=== PATIENT | male | born 1995 | race Caucasian/White ===

== ENCOUNTER 2017-07-08 21:44 | Emergency (ER) | payer OTHER, MEDICAID, SELFPAY ==
[2017-07-08 21:47] VITALS: BP 154/99; PULSE 103; RESP 17; TEMP 36.7; O2SAT 100; BMI 34.5
--- NOTE | 2017-07-09 00:21 | DI.RAD.S_ITS ---
PROCEDURE: XR CHEST 2V INDICATIONS: coughing / choking - aspiration? TECHNIQUE: 2 views of the chest were acquired. COMPARISON: None. FINDINGS: Surgical changes and devices: None. Lungs and pleura: No pleural effusions or pneumothorax. Lungs are clear. Mediastinum: Mediastinal contours are normal. Heart size is normal. Bones and chest wall: No suspicious bony abnormalities. Soft tissues appear unremarkable. IMPRESSION: No acute process. Dictated by: Liudmila Mckeon M.D. on 07/09/2017 at 8:11 Approved by: Liudmila Mckeon M.D. on 07/09/2017 at 8:12
[2017-07-09] MEDS: DEXAMETHASONE 4 MG TABLET 12 MG PO (00:45)
--- NOTE | 2017-07-09 00:50 | ED_ITS ---
HPI - URI/Sore Throat General Chief Complaint: Upper Respiratory Symptoms Stated Complaint: HARD TIME BREATHING History of Present Illness HPI Narrative: HPI 21-year-old male with history of prior TBI and asthma (an albuterol inhaler, no AeroChamber) presents for evaluation of 3 days of cough, rhinorrhea, and a mild sore throat. Prior to presentation the patient had a brief coughing type choking type spell. Patient believes he may have had increased postnasal drip at the time. Patient denies a history of DVT or PE, patient denies chest pain. Patient denies fevers. Denies rash, neck stiffness, headache, changes in vision or hearing, or ear pain. M/S/F/SocHx notable for: please see HPI; remainder reviewed with patient and in chart. ROS: Negative constitutional, eye, cardiovascular, pulmonary, GI, , MSK, skin , neurologic, psychiatric, endocrine unless noted in the HPI. Exam Gen: Pleasant, non-toxic appearing, resting comfortably. Mildly nasal phonation. HEENT: Normocephalic, atraumatic. * Ears - TMs clear bilaterally, bilateral external auditory canals without erythema, inflammation, or swelling, bilateral mastoids nontender without overlying erythema, swelling, or warmth. * Eyes - Bilateral eyes without injection, swelling, or discharge, no proptosis or periorbital erythema, swelling, warmth, or tenderness. * Mouth - Anterior oropharynx with MMM, no lesions appreciated, floor of the mouth is soft and without swelling. Posterior oropharynx with mild erythema but without swelling, exudate, lesions, uvula midline. * Nose - Nares with scant crusting and discharge. * Neck - Neck supple without posterior anterior cervical chain lymphadenopathy bilaterally. Resp: Clear to auscultation bilaterally, normal work of breathing without accessory muscle usage.Infrequent mildly productive cough observed. Card: Regular rate and rhythm with no murmurs, rubs or gallops. Extremities warm and well perfused. GI: nontender, nondistended. : Deferred MSK: No visible deformities, strength and tone without visually appreciable deficit. Neuro: AO x 3, no facial asymmetry, vision and hearing WNL. Heme/Lymph: Deferred Skin: Normal color with no visible lesions (other than noted above). Psych: Mood and affect appropriate. CXR: no acute cardiopulmonary disease process. MDM Previous chart, nursing note, and vitals reviewed. A: 21-year-old male with history of prior TBI and asthma (an albuterol inhaler, no AeroChamber) presents for evaluation of 3 days of cough, rhinorrhea, and a mild sore throat DDx: viral rhinosinusitis, bacterial rhinosinusitis, pharyngitis (HSV vs viral NOS vs GAS vs bacterial NOS)], EBV, peritonsillar cellulitis, MANAGER OF RECRUITING, RPA, Ej' s angina, epiglottitis. Evaluation: Overall presentation most consistent with a viral rhinosinutisis, given the duration of symptoms and overall well compensated appearance, antibiotic treatment is not currently indicated, suspect the patient's coughing episode was secondary to postnasal drip. Chest x-ray clear, no pneumothorax, and the patient's history is reassuringly without evidence of hypoxemia or cyanosis. rapid strep not indicated, oral mucosa without lesions consistent with HSV or candidiasis, low suspicion for peritonsillar cellulitis or abscess given the absence of asymmetric swelling or uvular deviation, RPA is unlikely as the patient can comfortably flex and extend their neck and swallow without difficulty. As phonation is intact and breathing is unlabored doubt epiglottitis. The floor of the mouth is without evidence of Ej's angina. Lemierre's disease was considered but as the patient does not have signs of MANAGER [employer]ING or sepsis, further evaluation was not indicated. ED Course: No clinically significant changes. Patient given 12 mg Decadron. Disposition: Discharge with return to care as needed. Return to care indications provided. Prescription for albuterol spacer provided. Impression: Rhinosinusitis. (please reference below for remainder of encounter information) Related Data Home Medications Medication Instructions Recorded Confirmed [Krill oil] #0 02/02/16 Previous Rx's Medication Instructions Recorded Disabled Parking Permit packet #1 02/02/16 hydrocodone-acetaminophen 1 tab PO Q6HP PRN #16 tab 08/11/16 albuterol sulfate [Ventolin HFA] 2 puff INH Q4HP PRN #1 ea 08/13/16 gabapentin [Neurontin] 600 mg PO TID #270 tab 06/08/17 Allergies Allergy/AdvReac Type Severity Reaction Status Date / Time amoxicillin [AMOXICILLIN] Allergy Unknown Unverified 06/01/17 12:28 nut - unspecified [NUT] Allergy Unknown Unverified 06/01/17 12:28 PFSH Surgical History Status post craniotomy Family History Grandmother Age: 69 Diabetes mellitus Social History Smoking Status: Current some day smoker Exam Initial Vital Signs Initial Vital Signs: Vital Signs Temperature 98.1 F 07/08/17 21:47 Pulse Rate 103 H 07/08/17 21:47 Respiratory Rate 17 07/08/17 21:47 Blood Pressure 154/99 H 07/08/17 21:47 Pulse Oximetry 100 07/08/17 21:47 Course Orders Ordered: ED Orders 07/09/17 00:21 XR chest 2V Stat Vital Signs - 8 hr 07/08/17 21:47 Temperature 98.1 F Pulse Rate 103 H Respiratory Rate 17 Blood Pressure 154/99 H Pulse Oximetry 100 Discharge Plan Departure Prescriptions: No Action [Krill oil] Qty: 0 RF: 0 Disabled Parking Permit Qty: 1 RF: 0 hydrocodone-acetaminophen 5 MG/325 MG tablet 1 tab PO Q6HP PRNQty: 16 RF: 0 albuterol sulfate [Ventolin HFA] 90 MCG/PUFF HFA aerosol inhaler 2 puff INH Q4HP PRNQty: 1 RF: 5 gabapentin [Neurontin] 600 MG tablet 600 mg PO TID Qty: 270 RF: 3
[2017-07-09 01:19] VITALS: BP 142/102; PULSE 96; RESP 16; TEMP 36.2; O2SAT 100
== END 2017-07-09 01:22 | disposition home or self-care (01) ==
PROVIDERS: Emergency Provider Emergency Medicine; PCP Family Medicine
DX: J32.9 Chronic sinusitis, unspecified (principal)
CPT/HCPCS: 71046; 99282; 99283

== ENCOUNTER → 2017-08-27 11:07 | Outpatient (CLI) | payer OTHER, MEDICAID, SELFPAY ==
--- NOTE | 2017-08-27 11:09 | DI.RAD.S_ITS ---
PROCEDURE: XR THORACIC SPINE 3V INDICATIONS: thoracic back pain, no trauma TECHNIQUE: 3 views of the thoracic spine were acquired. COMPARISON: [facility], CR, XR CHEST 2V, 07/09/2017, 0:06. FINDINGS: Bones: No acute fractures or subluxation. Slight anterior wedging of a few vertebral bodies in the lower thoracic spine appear similar to the prior study. There is an associated mild kyphosis. There is a mild rightward curvature of the lower thoracic spine. No suspicious bony lesions. 12 pairs of ribs are noted, and appear intact where visualized. Soft tissues: No paravertebral stripe thickening. IMPRESSION: 1. No acute fracture or subluxation. 2. Slight anterior wedging of a few vertebral bodies in the lower thoracic spine redemonstrated with associated mild kyphosis. Dictated by: Gume Armenta M.D. on 08/27/2017 at 12:13 Approved by: Gume Armenta M.D. on 08/27/2017 at 12:15
== END ==
PROVIDERS: PCP Family Medicine; Visit Provider Family Medicine
DX: M54.6 Pain in thoracic spine (principal)
CPT/HCPCS: 72072

== ENCOUNTER → 2017-09-13 07:21 | Outpatient (CLI) | payer OTHER, MEDICAID, SELFPAY ==
--- NOTE | 2017-09-13 07:22 | DI.MRI.S_ITS ---
PROCEDURE: MR THORACIC SPINE WO CON INDICATIONS: nerve root injurt of thoracic spine TECHNIQUE: Noncontrast sagittal T1 spine echo and T2 fast spin echo, sagittal STIR, axial T1 and T2 fast spin echo through the thoracic spine. COMPARISON: [facility], CR, XR THORACIC SPINE 3V, 08/27/2017, 11:04. FINDINGS: Image quality: Excellent. Alignment and Curvature: There is normal bony alignment. Bone Marrow: Marrow is of normal overall signal. No acute vertebral body compression fractures. There is mild loss of vertebral height at T8, T9, T10, and T11 without associated marrow edema, either congenital or sequelae of old injury. This results in focal kyphosis in the lower thoracic spine. Spinal Cord: Visualized spinal cord is normal in size and signal. Paraspinous Soft Tissues: No paravertebral masses. Miscellaneous: There is posterior left paramedian disc protrusion at C7-C8 with a protruding disc measuring 5 mm anterior posterior, 7 mm transverse and 9 mm cephalocaudal. There is severe narrowing of the left lateral recess and impingement of nerve root. There is mass effect and flattening of the ventral cord at this level. The central canal moderately narrowed. No subarticular foramina. Mild diffuse posterior disc bulge is also seen at T10-T11 causing mild central canal narrowing. IMPRESSION: 1. There is posterior left paramedian disc protrusion with a 5 x 7 x 9 mm protruding disc occupying the left lateral recess impinging the nerve root. The central canal is moderately narrowed. There is mass effect to the spinal cord with ventral flattening of the cord. 2. Loss of vertebral body height at T8, T9, T10 and T11 without associated marrow edema, suggesting chronic etiology. This may be congenital or sequelae of old injury. There is mild focal kyphosis in the lower thoracic spine. 3. Mild posterior disc bulge at T10-T11 causing mild central canal stenosis. Dictated by: Shayne Adams M.D. on 09/13/2017 at 8:23 Transcribed by: KRISHAN on 09/13/2017 at 8:36 Approved by: Shayne Adams M.D. on 09/13/2017 at 17:49
== END ==
PROVIDERS: Family Provider Family Medicine; PCP Family Medicine; Visit Provider Family Medicine
DX: S24.2XXA Injury of nerve root of thoracic spine, initial encounter (principal); M40.204 Unspecified kyphosis, thoracic region; M48.04 Spinal stenosis, thoracic region
CPT/HCPCS: 72146

== ENCOUNTER → 2019-09-10 11:06 | Outpatient (CLI) | payer OTHER, MEDICAID, SELFPAY ==
--- NOTE | 2019-09-10 | DI.MRI.S_ITS ---
PROCEDURE: MR THORACIC SPINE WO CON INDICATIONS: Other kyphosis, thoracic region TECHNIQUE: Noncontrast sagittal T1 spine echo and T2 fast spin echo, sagittal STIR, axial T1 and T2 fast spin echo through the thoracic spine. COMPARISON: [facility], CR, XR THORACIC SPINE 3V, 08/27/2017, 11:04. [facility], MR, MR THORACIC SPINE WO CON, 09/13/2017, 7:50. FINDINGS: Image quality: Excellent. Alignment and Curvature: There is normal bony alignment. Bone Marrow: Marrow is of normal overall signal. No acute vertebral body compression fractures. Spinal Cord: Visualized spinal cord is normal in size and signal. Note is made of previously present degenerative disc disease most prominent at T7-T8, within asymmetric posterolateral contiguous disc herniation at the left margin of the thecal sac, previously present, impinging on the anterolateral left thecal sac and producing focal eccentric mild to moderate spinal stenosis at that level. No new disc bulge or herniation has developed. Mild degenerative disc disease and low thoracic spine kyphosis is again noted in this area. Paraspinous Soft Tissues: No paravertebral masses. Miscellaneous: On axial images, central canal and foramina appear widely patent at all scanned levels. IMPRESSION: No change in a chronic contiguous left posterolateral disc herniation involving the T7-T8 level of the thoracic spine with reference to the prior MRI from 09/13/17. Focal anterior impingement on the thecal sac in that area is present as a result, without worsening. This may also impinge upon the left-sided T7 nerve root within the spinal canal in that area. Chronic mild kyphosis centered at T8, previously present by plain film imaging also in August of 2017. Dictated by: Nabil Hartmann M.D. on 09/10/2019 at 12:25 Approved by: Nabil Hartmann M.D. on 09/10/2019 at 12:32
== END ==
PROVIDERS: PCP Student in an Organized Health Care Education/Training Program; Referring Provider Neurological Surgery; Visit Provider Neurological Surgery
DX: M40.294 Other kyphosis, thoracic region (principal); M51.24 Other intervertebral disc displacement, thoracic region
CPT/HCPCS: 72146

== ENCOUNTER 2019-09-20 14:30 | Outpatient (RCR) | payer OTHER, MEDICAID, SELFPAY ==
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
--- NOTE | 2019-09-13 16:45 | PT.OPPOC ---
Physical, Occupational & Speech Therapy At [facility] Current Diagnoses Other secondary scoliosis, thoracic region (09/13/19) Unspecified thoracic, thoracolumbar and lumbosacral intervertebral disc disorder (09/13/19) Congenital kyphosis, thoracic region (09/13/19) Abnormal posture (09/13/19) Weakness (09/13/19) Visit Care Team Role Provider Type Niko Fernandes MD Primary Care Provider Physician Specialty: Internal Medicine Address: [address] [place] [address], [address], [address] Email: [email or web address] Nic Calero Attending Provider Non-Staff Referring Provider Specialty: Neuromuscular Medicine Address: [address] [place] [address], [employer] Email: Plan Of Care PT-OP-T Assessment and Plan Start: 09/13/19 17:51 Freq: Status: Active Protocol: Document 09/13/19 16:00 DCW (Rec: 09/14/19 11:50 DCW [id number]) Physical Therapy Assessment Rehab Potential Rehabilitation Potential Fair Evaluation Complexity Number of Personal Factors/Comorbidities 3 or More Number of Body Systems Impaired 4 or More Clinical Presentation at Evaluation Unstable Impairments Impairments Activity Tolerance, Coordination,Functional Activities,Functional Mobility ,Gait,Pain,Posture,ROM, Sensation,Soft Tissue Mobility ,Strength Goals Three Impairment Poor posture, inferior angle 15 cm from spine bilaterally Capacitor Assembler Goal (LTG) Pt to be able to display shoulder's back posture with less than 9 cm between spine and inferior angle of his scapula bilaterally. LTG Duration 11/14/19 Two Impairment TrA weakness 4-/5 Capacitor Assembler Goal (LTG) Pt to present with TrA MMT of 4+/5 or better to improve stability of core and low back , to assist in recovery of upcoming thoracic fusion and discectomy LTG Duration 11/14/19 One Impairment Pt does not have an appropriate home exercise program Short Term Goal (STG) Pt to be independent and compliant with an appropriate HEP STG Duration 10/14/19 Assessment Summary Assessment Pt presents for a high complexity evaluation with the main goal of improving core and back strength to improve recovery for upcoming thoracic surgery. 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 Pt gets pain when remaining in a seated or standing position for longer than ~10 minutes, which will likely limit some of the activities he is able to participate in during therapy. Skilled therapy should mainly focus on strengthening core and back musculature, which may hopefully improve tolerance to activity and improve positioning. Pt's poor posture due to Scheuermann's kyphosis may also limit participation in therapy, however he may benefit from some general shoulder/scapular strengthening in order to attempt to improve scapular mobility. Physical Therapy Plan Frequency and Duration Frequency of Treatment 2x/Week Duration of Treatment 8 weeks Plan of Care Start Date 09/13/19 Plan of Care End Date 11/08/19 Therapeutic Interventions Therapeutic Interventions Gait Training,Home Exercise Program,Manual Therapy, Neuromuscular Re-education, Patient/Caregiver Education, Self-Care/Home Management,Soft Tissue Mobilization, Therapeutic Activities, Therapeutic Exercises Modalities Cold Pack/Ice Massage,Electric Stimulation,Hot Packs, Ultrasound Next Visit Focus/Plan Next Note Type Treatment Note Next Visit Plan Begin core strengthening, posture training Plan of Care Dates Plan of Care Start Date 09/13/19 Plan of Care End Date 11/08/19 Electronically Signed by: Smooth De Paz, PT 09/14/19 0323 Please Sign and Return: I have reviewed this Plan of Care and certify that the skilled therapy services above are required to meet the patient?s needs. Physician Signature Date Printed Name and Credentials Clinical Instructor Signature Printed Name and Credentials
--- NOTE | 2019-09-18 16:38 | PT.OTN ---
Current Diagnoses Other secondary scoliosis, thoracic region (09/18/19) Unspecified thoracic, thoracolumbar and lumbosacral intervertebral disc disorder (09/18/19) Congenital kyphosis, thoracic region (09/18/19) Abnormal posture (09/18/19) Weakness (09/18/19) Physical Therapy Treatment Note PT-OP-A Visit Information Start: 09/13/19 17:51 Freq: Status: Active Protocol: Document 09/18/19 15:48 DCW (Rec: 09/18/19 16:38 DCW [id number]) Out-Patient Physical Therapy Visit Information Visit Information Visit Type Treatment Note Visit Start Time 15:48 Visit Stop Time 16:30 Total Visit Minutes 42 Visit Number 2 Number of [employer]ON Visits 0 Evaluation Information Evaluation Date 09/13/19 PT-OP-B Current Condition Start: 09/13/19 17:51 Freq: Status: Active Protocol: Document 09/13/19 16:00 DCW (Rec: 09/14/19 08:52 DCW [id number]) Current Condition History of Current Condition Onset Date 09/08/13 Current Complaints Back pain, left-sided weakness , poor posture History of Current Condition Pt is a 23 year old male with an incredibly complex history, presenting to skilled PT in order to increase his core and back strength. Pt reports that in August of 2013, he had a nasty slip and fall, after which he was air lifted to [facility], underwent a Craniotomy to relieve swelling around the brain, has had 50+ titanium screws and plates in his skull, and was in a coma for six weeks. The end results of these injuries involve left-sided nerve damage, which causes weakness and absence of sensory input from his left upper and lower extremities. Pt uses a SPC for stability secondary to the leg weakness. Pt attempted to attend college after his accident, however due to the brain injury, had a lot of difficulty with studying and learning new material, and he admits he still gets words mixed up and has trouble with word finding. 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 Additionally, due to his fall, pt has a disc herniation at T7-8, which pretty much causes pain 13/09. Pt is planning on scheduling a surgery to address the disc herniation and fuse his thoracic spine to limit kyphosis, however his surgeon suggested pre-op therapy to improve core and back strength in order to improve recovery time following surgery. 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 Pt notes he is able to use specific nerve pain feedback to figure out what his hand is doing. Prior Treatments and Tests Thoracic MRI: MPRESSION: No change in a chronic contiguous left posterolateral disc herniation involving the T7-T8 level of the thoracic spine with reference to the prior MRI from 09/13/17. Focal anterior impingement on the thecal sac in that area is present as a result, without worsening. This may also impinge upon the left-sided T7 nerve root within the spinal canal in that area. Chronic mild kyphosis centered at T8, previously present by plain film imaging also in August of 2017. Per: Nabil Hartmann M.D. on Treatment Goals Patient/Caregiver Goals I just really need to work on strengthening my back and core so I can get this surgery . All my other issues are nerve damage from the head injury, and they're permanent, so they're not going to change. PT-OP-C Subjective Start: 09/13/19 17:51 Freq: Status: Active Protocol: Document 09/18/19 15:48 DCW (Rec: 09/18/19 16:38 DCW [id number]) OP-PT Subjective Patient Comments Patient Comments I feel about normal today, so that's pretty good. Pt does note that when he does too much too quickly, he feels like he gets out of breath due to his nerve damage, so he requests that the pace slows down a little bit today. PT-OP-J Posture/Palpation/Skin Start: 09/13/19 17:51 Freq: Status: Active Protocol: Document 09/13/19 16:00 DCW (Rec: 09/14/19 11:36 DCW [id number]) Posture Evaluation Position Standing Evaluation View Lateral Head/C-Spine Posture Forward Head T-Spine Posture Increased Kyphosis L-Spine Posture Flattened Shoulder Posture (L) Rounded,(R) Rounded,(L) Forward,(R) Forward Scapula Posture (L) Protracted,(R) Protracted Comments Posture Comments Distance from spine to inferior angle of scapula bilaterally: 15 cm PT-OP-K Range of Motion Start: 09/13/19 17:51 Freq: Status: Active Protocol: Document 09/13/19 16:00 DCW (Rec: 09/14/19 11:36 DCW [id number]) Lumbar Spine Range of Motion Lumbar Spine Active Comments Significant pain with any trunk rotation, minimal flexion (5-10%) before pain. Pt struggles to maintain shoulders back, erect posture due to fatiigue and pain. PT-OP-L Special Tests Start: 09/13/19 17:51 Freq: Status: Active Protocol: Document 09/13/19 16:00 DCW (Rec: 09/14/19 11:36 DCW [id number]) Special Tests Hip Special Tests Straight Leg Raise Test Results Hamstring tightness at 40? bilaterally JOHN Test Results Adductor tightness/pain PT-OP-M Strength Start: 09/13/19 17:51 Freq: Status: Active Protocol: Document 09/13/19 16:00 DCW (Rec: 09/14/19 11:36 DCW [id number]) Trunk Strength Trunk Manual Muscle Testing Testing Position Supine Core Stabilization Pt able to contract TrA, fatigues quickly, especially with leg movement, 4-/5 PT-OP-Q Treatments Start: 09/13/19 17:51 Freq: Status: Active Protocol: Document 09/18/19 15:48 DCW (Rec: 09/18/19 16:38 DCW [id number]) Gym Equipment Shuttle Balance Red Comments Wide KESHAV, Staggered Therapeutic Ball 2 Exercise Details Hip/Knee flexion Ball Size/Color Blue - 45 cm Body Position Supine 1 Exercise Details Low Trunk Rotation Ball Size/Color Blue - 45 cm Body Position Supine Therapeutic Exercises Supine Exercises 3 Supine Exercise Name SLR /c TrA contraction Side bilateral Comments HEP 2 Supine Exercise Name Supine marching /c TrA contraction Side bilateral Comments HEP 1 Supine Exercise Name PPT /c TrA contraction Comments HEP Sitting Exercises 1 Sitting Exercise Name Reverse Sit-up PT-OP-T Assessment and Plan Start: 09/13/19 17:51 Freq: Status: Active Protocol: Document 09/18/19 15:48 DCW (Rec: 09/18/19 16:38 DCW [id number]) Physical Therapy Assessment Impairments Impairments Activity Tolerance, Coordination,Functional Activities,Functional Mobility ,Gait,Pain,Posture,ROM, Sensation,Soft Tissue Mobility ,Strength Goals Three Impairment Poor posture, inferior angle 15 cm from spine bilaterally Residential Goal (LTG) Pt to be able to display shoulder's back posture with less than 9 cm between spine and inferior angle of his scapula bilaterally. LTG Duration 11/14/19 Two Impairment TrA weakness 4-/5 Residential Goal (LTG) Pt to present with TrA MMT of 4+/5 or better to improve stability of core and low back , to assist in recovery of upcoming thoracic fusion and discectomy LTG Duration 11/14/19 One Impairment Pt does not have an appropriate home exercise program Short Term Goal (STG) Pt to be independent and compliant with an appropriate HEP STG Duration 10/14/19 Assessment Summary Assessment Pt did very well today, tolerated most activities and did excellent on Shuttle Balance. Pt unable to tolerate bridging activities due to his back. Pt very excited to work on his HEP. Physical Therapy Plan Frequency and Duration Frequency of Treatment 2x/Week Duration of Treatment 8 weeks Plan of Care Start Date 09/13/19 Plan of Care End Date 11/08/19 Therapeutic Interventions Therapeutic Interventions Gait Training,Home Exercise Program,Manual Therapy, Neuromuscular Re-education, Patient/Caregiver Education, Self-Care/Home Management,Soft Tissue Mobilization, Therapeutic Activities, Therapeutic Exercises Modalities Cold Pack/Ice Massage,Electric Stimulation,Hot Packs, Ultrasound Next Visit Focus/Plan Next Note Type Treatment Note Next Visit Plan Begin core strengthening, posture training
--- NOTE | 2019-09-20 15:16 | PT.OTN ---
Current Diagnoses Other secondary scoliosis, thoracic region (09/20/19) Unspecified thoracic, thoracolumbar and lumbosacral intervertebral disc disorder (09/20/19) Congenital kyphosis, thoracic region (09/20/19) Abnormal posture (09/20/19) Weakness (09/20/19) Physical Therapy Treatment Note PT-OP-A Visit Information Start: 09/13/19 17:51 Freq: Status: Active Protocol: Document 09/20/19 14:30 DCW (Rec: 09/20/19 15:16 DCW [id number]) Out-Patient Physical Therapy Visit Information Visit Information Visit Type Treatment Note Visit Start Time 14:30 Visit Stop Time 15:15 Total Visit Minutes 45 Visit Number 3 Number of SURGICAL INSTRUMENT REPAIR SPECIALIST Visits 0 Evaluation Information Evaluation Date 09/13/19 PT-OP-B Current Condition Start: 09/13/19 17:51 Freq: Status: Active Protocol: Document 09/13/19 16:00 DCW (Rec: 09/14/19 08:52 DCW [id number]) Current Condition History of Current Condition Onset Date 09/08/13 Current Complaints Back pain, left-sided weakness , poor posture History of Current Condition Pt is a 23 year old male with an incredibly complex history, presenting to skilled PT in order to increase his core and back strength. Pt reports that in August of 2013, he had a nasty slip and fall, after which he was air lifted to [facility], underwent a Craniotomy to relieve swelling around the brain, has had 50+ titanium screws and plates in his skull, and was in a coma for six weeks. The end results of these injuries involve left-sided nerve damage, which causes weakness and absence of sensory input from his left upper and lower extremities. Pt uses a SPC for stability secondary to the leg weakness. Pt attempted to attend college after his accident, however due to the brain injury, had a lot of difficulty with studying and learning new material, and he admits he still gets words mixed up and has trouble with word finding. 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 Additionally, due to his fall, pt has a disc herniation at T7-8, which pretty much causes pain 13/09. Pt is planning on scheduling a surgery to address the disc herniation and fuse his thoracic spine to limit kyphosis, however his surgeon suggested pre-op therapy to improve core and back strength in order to improve recovery time following surgery. 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 Pt notes he is able to use specific nerve pain feedback to figure out what his hand is doing. Prior Treatments and Tests Thoracic MRI: MPRESSION: No change in a chronic contiguous left posterolateral disc herniation involving the T7-T8 level of the thoracic spine with reference to the prior MRI from 09/13/17. Focal anterior impingement on the thecal sac in that area is present as a result, without worsening. This may also impinge upon the left-sided T7 nerve root within the spinal canal in that area. Chronic mild kyphosis centered at T8, previously present by plain film imaging also in August of 2017. Per: Nabil Hartmann M.D. on Treatment Goals Patient/Caregiver Goals I just really need to work on strengthening my back and core so I can get this surgery . All my other issues are nerve damage from the head injury, and they're permanent, so they're not going to change. PT-OP-C Subjective Start: 09/13/19 17:51 Freq: Status: Active Protocol: Document 09/20/19 14:30 DCW (Rec: 09/20/19 15:16 DCW [id number]) OP-PT Subjective Patient Comments Patient Comments I've done the exercises, and I 'm really feeling it. It feels like it is doing too much. It seems like when I stood back up, the left leg just wouldn't work, which is common when I over-work it. I've been struggling more than usual to hold myself up. PT-OP-J Posture/Palpation/Skin Start: 09/13/19 17:51 Freq: Status: Active Protocol: Document 09/13/19 16:00 DCW (Rec: 09/14/19 11:36 DCW [id number]) Posture Evaluation Position Standing Evaluation View Lateral Head/C-Spine Posture Forward Head T-Spine Posture Increased Kyphosis L-Spine Posture Flattened Shoulder Posture (L) Rounded,(R) Rounded,(L) Forward,(R) Forward Scapula Posture (L) Protracted,(R) Protracted Comments Posture Comments Distance from spine to inferior angle of scapula bilaterally: 15 cm PT-OP-K Range of Motion Start: 09/13/19 17:51 Freq: Status: Active Protocol: Document 09/13/19 16:00 DCW (Rec: 09/14/19 11:36 DCW [id number]) Lumbar Spine Range of Motion Lumbar Spine Active Comments Significant pain with any trunk rotation, minimal flexion (5-10%) before pain. Pt struggles to maintain shoulders back, erect posture due to fatiigue and pain. PT-OP-L Special Tests Start: 09/13/19 17:51 Freq: Status: Active Protocol: Document 09/13/19 16:00 DCW (Rec: 09/14/19 11:36 DCW [id number]) Special Tests Hip Special Tests Straight Leg Raise Test Results Hamstring tightness at 40? bilaterally JOHN Test Results Adductor tightness/pain PT-OP-M Strength Start: 09/13/19 17:51 Freq: Status: Active Protocol: Document 09/13/19 16:00 DCW (Rec: 09/14/19 11:36 DCW [id number]) Trunk Strength Trunk Manual Muscle Testing Testing Position Supine Core Stabilization Pt able to contract TrA, fatigues quickly, especially with leg movement, 4-/5 PT-OP-Q Treatments Start: 09/13/19 17:51 Freq: Status: Active Protocol: Document 09/20/19 14:30 DCW (Rec: 09/20/19 15:16 DCW [id number]) Gym Equipment Therapeutic Ball 3 Exercise Details Seated trunk flexion Ball Size/Color Green - 65 cm Body Position Sitting Comments Walk ball out - minimal trunk mobility Therapeutic Exercises Supine Exercises 6 Supine Exercise Name Alternating shoulder flexion/ extension 5 Supine Exercise Name Horizontal Adduction Side bilateral 4 Supine Exercise Name Serratus punch Side bilateral Sitting Exercises 3 Sitting Exercise Name Horizontal Abduction Side bilateral Resistance Lv 1 Equipment Used T-band 2 Sitting Exercise Name Scapular retraction Side bilateral Standing Exercises 4 Standing Exercise Name IR Side bilateral Resistance Lv 2 Equipment Used T-band 3 Standing Exercise Name ER Side bilateral Resistance Lv 2 Equipment Used T-band 2 Standing Exercise Name Shoulder Extension Side bilateral Resistance Lv 2 Equipment Used T-band 1 Standing Exercise Name Rows Side bilateral Resistance Lv 2 Equipment Used T-band PT-OP-T Assessment and Plan Start: 09/13/19 17:51 Freq: Status: Active Protocol: Document 09/20/19 14:30 DCW (Rec: 09/20/19 15:16 DCW [id number]) Physical Therapy Assessment Impairments Impairments Activity Tolerance, Coordination,Functional Activities,Functional Mobility ,Gait,Pain,Posture,ROM, Sensation,Soft Tissue Mobility ,Strength Goals Three Impairment Poor posture, inferior angle 15 cm from spine bilaterally Traffic Law Attorney Goal (LTG) Pt to be able to display shoulder's back posture with less than 9 cm between spine and inferior angle of his scapula bilaterally. LTG Duration 11/14/19 Two Impairment TrA weakness 4-/5 Snf Goal (LTG) Pt to present with TrA MMT of 4+/5 or better to improve stability of core and low back , to assist in recovery of upcoming thoracic fusion and discectomy LTG Duration 11/14/19 One Impairment Pt does not have an appropriate home exercise program Short Term Goal (STG) Pt to be independent and compliant with an appropriate HEP STG Duration 10/14/19 Assessment Summary Assessment Switched focus today more to shoulder and posture training, in order to limit back and leg discomfort. Physical Therapy Plan Frequency and Duration Frequency of Treatment 2x/Week Duration of Treatment 8 weeks Plan of Care Start Date 09/13/19 Plan of Care End Date 11/08/19 Therapeutic Interventions Therapeutic Interventions Gait Training,Home Exercise Program,Manual Therapy, Neuromuscular Re-education, Patient/Caregiver Education, Self-Care/Home Management,Soft Tissue Mobilization, Therapeutic Activities, Therapeutic Exercises Modalities Cold Pack/Ice Massage,Electric Stimulation,Hot Packs, Ultrasound Next Visit Focus/Plan Next Note Type Treatment Note Next Visit Plan core strengthening, posture training
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
== END 2019-09-26 14:58 ==
LOC: PHYS 14:30
PROVIDERS: PCP Student in an Organized Health Care Education/Training Program; Referring Provider Neurological Surgery; Visit Provider Neurological Surgery
DX: M51.9 Unspecified thoracic, thoracolumbar and lumbosacral intervertebral disc disorder (principal); Q76.414 Congenital kyphosis, thoracic region; M41.54 Other secondary scoliosis, thoracic region; R29.3 Abnormal posture; R53.1 Weakness
CPT/HCPCS: 97110; 97112; 97163

== ENCOUNTER → 2020-03-14 16:17 | Outpatient (CLI) | payer OTHER, MEDICAID, SELFPAY ==
--- NOTE | 2020-03-14 | DI.RAD.S_ITS ---
PROCEDURE: XR T AND L SPINE 2 TO 3 VIEWS INDICATIONS: Fusion Spine, Thoracolumbar Region TECHNIQUE: 2 views acquired of the thoracolumbar spine. COMPARISON: [facility], CR, XR THORACIC SPINE 3V, 08/27/2017, 11:04. [facility], MR, MR THORACIC SPINE WO CON, 09/10/2019, 11:29. FINDINGS: Bones: Interval bilateral Temple ronaldo placement bridging T4 through L2. No evidence of hardware failure or loosening. No acute fractures or dislocations. Visualized inferior ribs appear intact. No suspicious bony lesions. Soft tissues: No suspicious soft tissue calcifications. IMPRESSION: Expected postoperative appearance, status post bilateral Temple ronaldo placement. Dictated by: Orville Carvalho M.D. on 03/14/2020 at 17:24 Approved by: Orville Carvalho M.D. on 03/14/2020 at 17:25
== END ==
PROVIDERS: PCP Student in an Organized Health Care Education/Training Program; Referring Provider Nurse Practitioner; Visit Provider Nurse Practitioner
DX: M43.25 Fusion of spine, thoracolumbar region (principal)
CPT/HCPCS: 72082

== ENCOUNTER → 2020-04-11 20:02 | Outpatient (CLI) | payer OTHER, MEDICAID, SELFPAY ==
--- NOTE | 2020-04-11 20:08 | DI.RAD.S_ITS ---
PROCEDURE: XR T AND L SPINE 2 TO 3 VIEWS INDICATIONS: SPINAL FUSION TECHNIQUE: 2 views acquired of the thoracolumbar spine. COMPARISON: [facility], , XR T AND L SPINE 2 TO 3 VIEWS, 03/14/2020, 16:25. FINDINGS: Bones: No acute fractures or dislocations. Visualized inferior ribs appear intact. No suspicious bony lesions. Postsurgical changes compatible with T4-L2 posterior fusion with placement of bilateral pedicle screws and posterior fusion rods. Orthopedic hardware remains intact. No lucency is identified at the bone hardware interface. Soft tissues: No suspicious soft tissue calcifications. IMPRESSION: Stable examination compared to March 14, 2020. Status post T4-L2 posterior fusion. Dictated by: Samara George MD, PhD on 04/11/2020 at 21:54 Approved by: Samara George MD, PhD on 04/11/2020 at 21:55
== END ==
PROVIDERS: PCP Student in an Organized Health Care Education/Training Program; Referring Provider Physician Assistant; Visit Provider Physician Assistant
DX: Z09 Encounter for follow-up examination after completed treatment for conditions other than malignant neoplasm (principal); Z98.1 Arthrodesis status
CPT/HCPCS: 72082

== ENCOUNTER → 2021-08-20 13:58 | Outpatient (CLI) | payer OTHER, SELFPAY ==
--- NOTE | 2021-08-20 13:59 | DI.RAD.S_ITS ---
PROCEDURE: XR FOOT LT MIN 3V INDICATIONS: Left lateral foot pain TECHNIQUE: 3 views of the foot were acquired. COMPARISON: None. FINDINGS: Bones: No fractures or dislocations. No suspicious bony lesions. Soft tissues: No tibiotalar joint effusion. Achilles tendon appears normal. IMPRESSION: No acute abnormality of the left foot. Dictated by: Dustin Andrews M.D. on 08/20/2021 at 21:25 Approved by: Dustin Andrews M.D. on 08/20/2021 at 21:27
== END ==
PROVIDERS: PCP Student in an Organized Health Care Education/Training Program; Referring Provider Student in an Organized Health Care Education/Training Program; Visit Provider Student in an Organized Health Care Education/Training Program
DX: M79.672 Pain in left foot (principal)
CPT/HCPCS: 73630

== ENCOUNTER → 2021-12-25 16:33 | Outpatient (CLI) | payer OTHER, MEDICAID, SELFPAY ==
--- NOTE | 2021-12-25 16:39 | DI.MRI.S_ITS ---
PROCEDURE: MR KNEE LT WO CON INDICATIONS: Unspecified internal derangement of left knee TECHNIQUE: Noncontrast sagittal PD fast spin echo and T2 fast spin echo with fat saturation, sagittal 3-D FLASH with fat saturation; coronal T1 spin echo and PD fast spin echo with fat saturation, and axial PD fast spin echo with fat saturation through the knee. COMPARISON: None. FINDINGS: Image quality: Excellent. Menisci: The medial and lateral menisci demonstrate normal morphology and internal signal. The meniscal root ligaments appear intact. Cruciate ligaments: The anterior and posterior cruciate ligaments appear intact. Medial structures: The medial collateral ligament appears intact. The posterior oblique ligament, semimembranosus tendon insertions, oblique popliteal ligament, and meniscocapsular junction appear intact. Visualized portions of the pes anserinus tendons appear normal. No abnormal bursal fluid. Lateral structures: The lateral collateral ligament, long and short heads of the biceps femoris tendon appear intact. The popliteus tendon appears normal; the popliteofibular ligament appears intact. Iliotibial band appears normal. Anterior structures: Distal quadriceps tendinosis at its superior patellar insertion is seen. Patellar tendon is grossly intact. Patellar alignment is normal. No femoral trochlear dysplasia or ventral trochlear prominence. No edema in the infrapatellar fat pad. Bones and cartilage: No bone marrow contusions or fractures. Low-grade chondromalacia patella involving apex and lateral facet of patella cartilage is seen. The cartilage of the medial and lateral femorotibial compartments appears normal in thickness. Joint space: There is small knee joint fluid. No Ng's cyst. Normal appearing synovial plicae are incidentally noted. IMPRESSION: 1. Distal quadriceps tendinosis at its superior patellar insertion. Low-grade chondromalacia patella in apex and lateral facet of patella cartilage. Patellar tendon is grossly intact. 2. Cruciate ligaments are intact. 3. No evidence of focal meniscal tear. Fracture or dislocation. No marrow edema. Small joint effusion, no gross loose bodies. Dictated by: Amor Adamson M.D. on 12/28/2021 at 8:40 Approved by: Amor Adamson M.D. on 12/28/2021 at 8:44
== END ==
PROVIDERS: PCP Student in an Organized Health Care Education/Training Program; Referring Provider Orthopaedic Surgery; Visit Provider Orthopaedic Surgery
DX: M23.92 Unspecified internal derangement of left knee (principal); M22.42 Chondromalacia patellae, left knee; M25.462 Effusion, left knee
CPT/HCPCS: 73721

== ENCOUNTER → 2024-03-09 16:36 | Outpatient (CLI) | payer OTHER, SELFPAY ==
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
== END ==
PROVIDERS: PCP Family Medicine; Referring Provider Family Medicine; Visit Provider Family Medicine
DX: M51.24 Other intervertebral disc displacement, thoracic region (principal); M48.04 Spinal stenosis, thoracic region; R29.898 Other symptoms and signs involving the musculoskeletal system; Z98.1 Arthrodesis status
CPT/HCPCS: 72146; 72148

== ENCOUNTER → 2024-03-15 14:48 | Outpatient (CLI) | payer OTHER, SELFPAY ==
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
== END ==
PROVIDERS: PCP Family Medicine; Referring Provider Family Medicine; Visit Provider Family Medicine
DX: G93.89 Other specified disorders of brain (principal); S06.9X5S Unspecified intracranial injury with loss of consciousness greater than 24 hours with return to pre-existing conscious level, sequela; R41.3 Other amnesia; G44.329 Chronic post-traumatic headache, not intractable
CPT/HCPCS: 70553; A9579